=== PATIENT | female | born 1970 | race American Indian/Alaskan Native ===

== ENCOUNTER 2019-10-28 08:21 | Emergency (ER) | payer MEDICAID ==
[~2019-10-28] VITALS: Ht 157.5 cm; Wt 70.6 kg
[~2019-10-28 08:21] MED LIST: CEPH-571 PO; DIAZ5TAB PO; HYDR-4383 PO; IBUP-1051 PO; NO HOME MEDS; ONDA4TAB6 PO; TIZA4TAB11 PO
[2019-10-28] MEDS ORDERED: normal saline 1000ml 1,000 ML IV ONE (08:40)
[2019-10-28] MEDS ORDERED: morphine 4 MG/ML inj SYRINge IV ONE ×2 (08:40→11:00)
[2019-10-28] MEDS ORDERED: TAM75C PO (08:40)
[2019-10-28] MEDS ORDERED: normal saline 1000ML IV soln IVB ONE (08:40)
[2019-10-28] MEDS ORDERED: ipratropium/albuterol 3ml nebule NEB ONE (08:40)
[2019-10-28] MEDS ORDERED: ondansetron/PF 4mg/2ml inj IV ONE (08:40)
[2019-10-28] MEDS ORDERED: ONDA4TAB6 PO (08:40)
[2019-10-28] MEDS ORDERED: ketorolac tromethamine 15mg/ml inj. IV ONE (08:40)
[2019-10-28] MEDS ORDERED: ipratropium 0.5 MG/2.5ML nebule IH ONE (08:50)
--- NOTE | 2019-10-28 09:15 | NUR ---
pt Duoneb treatment, wasted in trash. Pt was unable to take due to claimed tachycardia and allergic reaction because of albuterol. MD notified and sub ordered Addendum: 10/28/19 at 0916 by Maria L Rene RT Amended: Links added.
[2019-10-28 09:53] LABS: BASOPHILS % (AUTO) 0.8 % (0-1); EOSINOPHILS # (AUTO) 0.1 X10'3 (0-0.9); EOSINOPHILS % (AUTO) 1.8 % (0-6); HEMATOCRIT 40.5 % (35.0-45.0); LYMPHOCYTES # (AUTO) 0.8 X10'3 (1.1-4.8); LYMPHOCYTES % (AUTO) 15.6 % (21-51); MEAN CORPUSCULAR HEMOGLOBIN 34.8 PG (27.0-31.0); MEAN CORPUSCULAR HGB CONC 34.6 g/dL (33.0-36.5); MEAN CORPUSCULAR VOLUME 100.4 FL (78-98); MEAN PLATELET VOLUME 8.7 FL (7.4-10.4); MONOCYTES # (AUTO) 0.4 X10'3 (0-0.9); MONOCYTES % (AUTO) 6.6 % (2-12); NEUTROPHILS # (AUTO) 4.1 X10'3 (1.8-7.7); NEUTROPHILS % (AUTO) 75.2 % (42-75); PLATELET COUNT 157 X10'3 (140-440); RED BLOOD COUNT 4.03 X10'6 (4.20-5.60); RED CELL DISTRIBUTION WIDTH 13.1 % (11.5-14.5); WHITE BLOOD COUNT 5.4 X10'3 (4.5-11.0)
[2019-10-28 10:14] LABS: ALANINE AMINOTRANSFERASE 348 U/L (12-78); ALBUMIN 3.7 G/DL (3.4-5.0); ALBUMIN/GLOBULIN RATIO 0.8 (1.1-1.5); ALKALINE PHOSPHATASE 477 IU/L (46-116); ANION GAP 11 (8-16); BILIRUBIN,TOTAL 1.6 MG/DL (0.1-1.0); BLOOD UREA NITROGEN 11 MG/DL (7-18); BUN/CREATININE RATIO 15.7 (6.6-38.0); CALCIUM 8.9 MG/DL (8.5-10.1); CHLORIDE 101 MMOL/L (99-107); GLUCOSE 120 MG/DL (70-104); LIPASE 185 U/L (73-393); POTASSIUM 3.8 MMOL/L (3.5-5.1); SODIUM 139 MMOL/L (135-145); TOTAL CARBON DIOXIDE 27.2 MMOL/L (24-32); TOTAL PROTEIN 8.4 G/DL (6.4-8.2); TROPONIN I < 0.04 NG/ML (0.0-0.05); eGFR 89 ML/MIN
--- NOTE | 2019-10-28 10:14 | NUR ---
Breaking Primary RN, changed NS to second bag, she is awake, male visitor in the room, VSS
[2019-10-28 10:16] LABS: ASPARTATE AMINO TRANSFERASE 1300 U/L (10-37)
[2019-10-28 10:29] LABS: CLARITY,URINE CLOUDY (Clear); COLOR,URINE YELLOW (Yellow); GLUCOSE, URINE NEGATIVE (Neg); KETONES,URINE NEGATIVE (Neg); LEUKOCYTE ESTERASE ,URINE NEGATIVE (Neg); NITRITES, URINE POSITIVE (Neg); OCCULT BLOOD,URINE SMALL (Neg); PROTEIN,URINE 100 mg/dl (Neg)
[2019-10-28 10:35] LABS: UA COLLECTION TYPE CLN CATCH MIDSTREAM
[2019-10-28 10:36] LABS: BACTERIA,URINE 4+ /HPF (Neg); RBC,URINE 0-2 /HPF (0-2); SQUAMOUS EPITHELIAL CELL,UR MODERATE /LPF (FEW)
[2019-10-28 10:56] LABS: ETHANOL < 0.010 GM/DL (0.0-0.010)
[2019-10-28 11:36] VITALS: BP 123/81
== END 2019-10-28 11:37 | disposition home or self-care (01) ==
LOC: ER 08:21
DX: R11.2 Nausea with vomiting, unspecified (principal); R06.02 Shortness of breath; R05 Cough; G43.909 Migraine, unspecified, not intractable, without status migrainosus; G89.29 Other chronic pain; F17.200 Nicotine dependence, unspecified, uncomplicated; Z98.890 Other specified postprocedural states; Z56.0 Unemployment, unspecified; Z88.8 Allergy status to other drugs, medicaments and biological substances; Z88.0 Allergy status to penicillin; Z79.899 Other long term (current) drug therapy
CPT/HCPCS: 36415; 71045; 76700; 80053; 80320; 81001; 83690; 84484; 85025; 87077; 87088; 87186; 93005; 94640; 96361; 96374; 96375; 96376; 99284; J1885; J2270; J2405; J7030; 94760

== ENCOUNTER 2020-03-15 10:00 | Emergency (ER) | payer MEDICAID ==
[~2020-03-15] VITALS: Ht 157.5 cm; Wt 80.0 kg
[2020-03-15] MEDS ORDERED: dexamethasone sod phosphate 10mg/ml inj IV STA (11:22)
[2020-03-15] MEDS ORDERED: normal saline 1000ML IV soln IVB ONE (11:25)
[2020-03-15] MEDS ORDERED: LORazepam 2 mg/ml vial IV ONE (11:25)
[2020-03-15] MEDS ORDERED: metoclopramide 5 mg/ml inj IV ONE (11:25)
[2020-03-15] MEDS ORDERED: ibuprofen tablet 400 MG TABLET PO ONE (12:15)
[2020-03-15] MEDS ORDERED: metoclopramide 10mg tablet PO ONE (12:15)
[2020-03-15] MEDS ORDERED: LORazepam 1 MG tablet PO ONE (12:15)
--- NOTE | 2020-03-15 12:15 | NUR ---
KAZ WILL BE PT RIDE, PLEASE CONTACT WHEN READY [phone]
--- NOTE | 2020-03-15 12:15 | NUR ---
pt refused to take iv or im inj pt requested for po medication,pt stated taht she is scared of needles ,notified wander delgado order to give po reglan 10 mg,motrin 800 mg po once,ativian 1mg.will follow the orders.pt want to go home.
[2020-03-15 12:34] VITALS: BP 125/73
== END 2020-03-15 12:37 | disposition home or self-care (01) ==
LOC: ER 10:01
DX: G43.909 Migraine, unspecified, not intractable, without status migrainosus (principal); G89.29 Other chronic pain; Z98.890 Other specified postprocedural states; Z56.0 Unemployment, unspecified; Z88.8 Allergy status to other drugs, medicaments and biological substances; Z88.0 Allergy status to penicillin; Z79.899 Other long term (current) drug therapy
CPT/HCPCS: 70450; 99284; J8597

== ENCOUNTER 2022-02-13 16:31 | Emergency (ER) | payer MEDICAID ==
[~2022-02-13] VITALS: Ht 157.5 cm; Wt 65.0 kg
[2022-02-13] MEDS ORDERED: predniSONE 20 mg tablet PO ONE (16:45)
[2022-02-13] MEDS ORDERED: albuterol 2.5 MG/3 ML nebule CONTNEB PRN (16:45)
[2022-02-13] MEDS ORDERED: methylPREDNISolone sod succ 125mg/2ml vial IV ONE (16:55)
[2022-02-13 17:10] LABS: EOSINOPHILS # (AUTO) 0.3 X10'3 (0-0.9); LYMPHOCYTES # (AUTO) 3.4 X10'3 (1.1-4.8); MEAN PLATELET VOLUME 8.5 FL (7.4-10.4); MONOCYTES # (AUTO) 0.6 X10'3 (0-0.9); MONOCYTES % (AUTO) 7.5 % (2-12)
[2022-02-13 17:12] LABS: BASOPHILS % (AUTO) 0.4 % (0-1); HEMATOCRIT 41.6 % (35.0-45.0); HEMOGLOBIN 13.9 g/dl (12.0-16.0); LYMPHOCYTES % (AUTO) 43.2 % (21-51); MEAN CORPUSCULAR HGB CONC 33.4 g/dL (33.0-36.5); MEAN CORPUSCULAR VOLUME 98.7 FL (78-98); NEUTROPHILS # (AUTO) 3.6 X10'3 (1.8-7.7); NEUTROPHILS % (AUTO) 44.9 % (42-75); PLATELET COUNT 214 X10'3 (140-440); RED BLOOD COUNT 4.22 X10'6 (4.20-5.60); RED CELL DISTRIBUTION WIDTH 12.9 % (11.5-14.5)
[2022-02-13 17:15] LABS: ALANINE AMINOTRANSFERASE 99 U/L (12-78); ALBUMIN 4.1 G/DL (3.4-5.0); ALBUMIN/GLOBULIN RATIO 0.9 (1.1-1.5); ALKALINE PHOSPHATASE 294 IU/L (46-116); ANION GAP 12 (8-16); ASPARTATE AMINO TRANSFERASE 89 U/L (10-37); BILIRUBIN,TOTAL 1.6 MG/DL (0.1-1.0); BLOOD UREA NITROGEN 16 MG/DL (7-18); BUN/CREATININE RATIO 21.6 (6.6-38.0); CALCIUM 9.3 MG/DL (8.5-10.1); CHLORIDE 100 MMOL/L (99-107); CREATININE 0.74 MG/DL (0.40-0.90); GLUCOSE 113 MG/DL (70-104); SODIUM 137 MMOL/L (135-145); TOTAL CARBON DIOXIDE 24.9 MMOL/L (24-32); TOTAL PROTEIN 8.9 G/DL (6.4-8.2); eGFR 83 ML/MIN
--- NOTE | 2022-02-13 17:28 | NUR ---
Dr. Mccullough at bedside.
[2022-02-13] MEDS ORDERED: ondansetron/PF 4mg/2ml inj IV ONE (17:40)
[2022-02-13] MEDS ORDERED: morphine 4 MG/ML inj SYRINge IV ONE (17:40)
--- NOTE | 2022-02-13 17:42 | NUR ---
RT at bedside.
[2022-02-13] MEDS ORDERED: LORazepam 2 mg/ml vial IV ONE ×2 (18:25→20:40)
[2022-02-13] MEDS ORDERED: ketorolac trometh. 30mg/ml inj. IV ONE (19:00)
[2022-02-13] MEDS ORDERED: albuterol 2.5 MG/3 ML nebule NEB ONE ×2 (19:10→20:00)
--- NOTE | 2022-02-13 19:14 | NUR ---
RESPIRATORY PAGED [phone]
[2022-02-13 20:34] VITALS: BP 119/65
[2022-02-13] MEDS ORDERED: IODIXANOL 320 MG/ML INFUS..BTL 100ML IV ONE (20:56)
[2022-02-13] MEDS ORDERED: PRED20TA PO (22:30)
[2022-02-13] MEDS ORDERED: ALBU8.5H17 INH (22:30)
[2022-02-13] MEDS ORDERED: albuterol 60 PUFF/8GM Inhaler IH PRN (22:30)
== END 2022-02-13 22:56 | disposition home or self-care (01) ==
LOC: ER 16:32
DX: R06.02 Shortness of breath (principal); M54.9 Dorsalgia, unspecified; G43.909 Migraine, unspecified, not intractable, without status migrainosus; Z88.0 Allergy status to penicillin; Z79.899 Other long term (current) drug therapy; Z88.8 Allergy status to other drugs, medicaments and biological substances; Z20.822 Contact with and (suspected) exposure to COVID-19
CPT/HCPCS: 36415; 71045; 71275; 80053; 84484; 85025; 87635; 93005; 94640; 96374; 96375; 99285; C9803; J1885; J2060; J2270; J2405; J2930; Q9967; 94760

== ENCOUNTER 2022-02-14 00:47 | Emergency (ER) | payer MEDICAID ==
[~2022-02-14] VITALS: Ht 157.5 cm; Wt 65.9 kg
[~2022-02-14 00:47] MED LIST changes: +ALBU8.5H17 INH; +PRED20TA PO
[2022-02-14] MEDS ORDERED: dexamethasone sod phosphate 10mg/ml inj IV STA (02:35)
[2022-02-14] MEDS ORDERED: albuterol 2.5 MG/3 ML nebule NEB ONE (02:35)
[2022-02-14] MEDS ORDERED: normal saline 1000ML IV soln IVB ONE (02:35)
[2022-02-14] MEDS ORDERED: haloperidol lactate 5mg/ml inj IM ONE (02:35)
[2022-02-14] MEDS ORDERED: chlordiazePOXIDE 25mg capsule PO ONE (02:45)
[2022-02-14 04:05] VITALS: BP 104/54
== END 2022-02-14 03:45 | disposition home or self-care (01) ==
LOC: ER 00:47
DX: R06.2 Wheezing (principal); F41.9 Anxiety disorder, unspecified; R05.9 Cough, unspecified; R06.02 Shortness of breath; G43.909 Migraine, unspecified, not intractable, without status migrainosus; G89.29 Other chronic pain; Z56.0 Unemployment, unspecified; Z88.8 Allergy status to other drugs, medicaments and biological substances; Z79.899 Other long term (current) drug therapy; Z88.0 Allergy status to penicillin
CPT/HCPCS: 93005; 94640; 96361; 96372; 96374; 99284; J1100; J1630; J7030